=== PATIENT | female | born 1980 | race African-American/Black ===

== ENCOUNTER 2018-04-09 19:49 | Emergency (ER) | payer SELFPAY ==
[~2018-04-09] VITALS: Ht 170.2 cm; Wt 68.2 kg
[~2018-04-09 19:49] MED LIST: ANTIVERT 25MG25 MG PO; CLARITIN 1010 MG/TAB PO; MOTRIN 800800 MG/TAB PO; No Medications; PHENERGAN 25 TA25 MG PO; REGLAN 10MG10 MG/TAB PO
[2018-04-09 19:56] VITALS: BP 179/94; TEMP 99.2
[2018-04-09] MEDS ORDERED: NORCO 325 MG-51 TAB PO (20:13)
[2018-04-09] MEDS ORDERED: AMOXICILLIN 50500 MG PO (20:13)
[2018-04-09 20:44] VITALS: PULSE 90
== END 2018-04-09 20:47 | disposition home or self-care (01) ==
LOC: COL.ER 19:49
DX: K04.7 Periapical abscess without sinus (principal); F17.210 Nicotine dependence, cigarettes, uncomplicated

== ENCOUNTER 2019-08-19 16:07 | Emergency (ER) | payer SELFPAY ==
[~2019-08-19] VITALS: Ht 170.2 cm; Wt 68.2 kg
[~2019-08-19 16:07] MED LIST changes: +AMOXICILLIN 50500 MG PO; +NORCO 325 MG-51 TAB PO
[2019-08-19 16:14] VITALS: BP 136/75; TEMP 97.6
[2019-08-19 17:20] VITALS: PULSE 107
[2019-08-19 17:29] LABS: BASO % 0.4 % (0.0-2.0); EOS % 0.2 % (0-4.0); GRAN # 6.8 (1.4-6.5); GRAN % 65.6 % (42.2-75.2); LYMPH # 3.1 (1.2-3.4); LYMPH % 29.5 % (20.0-51.0); MEAN CELL VOLUME 72 fl (80.0-100.0); MEAN CORPUSCULAR HGB CONC 27 g/dl (33.0-37.0); MEAN PLATELET VOLUME 10.5 fl (7.4-10.4); MONO # 0.4 (0.1-0.6); PLATELET COUNT 323 K/mm3 (130-400); RED BLOOD COUNT 3.76 M/mm3 (4.10-5.30); REDCELL DISTRIBUTION WIDTH-CV 21.8 % (11.5-14.5)
[2019-08-19 17:38] LABS: HEMATOCRIT 26.9 % (37.0-47.0); HEMOGLOBIN 7.3 g/dl (12.5-16.0); MEAN CORPUSCULAR HEMOGLOBIN 19 pg (27.0-31.0)
[2019-08-19] MEDS ORDERED: FERROUS SU325 MG/TAB PO (17:42)
[2019-08-19 17:43] LABS: ALANINE AMINOTRANSFERASE < 6 U/L (9-52); ALBUMIN 3.8 gm/dL (3.5-5.0); ALKALINE PHOSPHATASE 59 U/L (50-136); ANION GAP 10 mmol/L (7-16); AST,SGOT 35 U/L (15-37); BILIRUBIN,TOTAL 0.4 mg/dL (0.0-1.0); BLOOD UREA NITROGEN 12 mg/dL (7-17); CALCIUM 9.6 mg/dL (8.4-10.2); CARBON DIOXIDE 25 mmol/L (22-30); CHLORIDE 98 mmol/L (98-107); CREATININE, serum 0.96 (0.52-1.25); GLUCOSE 126 mg/dL (74-106); POTASSIUM 3.2 mmol/L (3.4-5.0); SODIUM 133 mmol/L (137-145); TOTAL PROTEIN 9.5 gm/dL (6.4-8.2)
== END 2019-08-19 17:20 | disposition home or self-care (01) ==
LOC: COL.ER 16:07
PROVIDERS: Emergency Medicine
DX: R11.2 Nausea with vomiting, unspecified (principal); D64.9 Anemia, unspecified

== ENCOUNTER 2019-11-26 13:19 | Emergency (ER) | payer SELFPAY ==
[~2019-11-26] VITALS: Ht 170.2 cm; Wt 66.8 kg
[~2019-11-26 13:19] MED LIST changes: +FERROUS SU325 MG/TAB PO
[2019-11-26 13:40] VITALS: TEMP 98
[2019-11-26 14:00] VITALS: BP 182/110; PULSE 82
[2019-11-26] MEDS ORDERED: ZESTORETIC 12.51 TAB PO (14:11)
== END 2019-11-26 14:20 | disposition home or self-care (01) ==
LOC: COL.ER 13:19
DX: I10 Essential (primary) hypertension (principal); D64.9 Anemia, unspecified; F17.210 Nicotine dependence, cigarettes, uncomplicated

== ENCOUNTER 2020-05-21 08:33 | Emergency (ER) | payer SELFPAY ==
[~2020-05-21] VITALS: Ht 170.2 cm; Wt 68.2 kg
[~2020-05-21 08:33] MED LIST changes: +ZESTORETIC 12.51 TAB PO
[2020-05-21 08:50] VITALS: BP 137/84; TEMP 98.2
[2020-05-21 10:42] VITALS: PULSE 80
== END 2020-05-21 10:42 | disposition home or self-care (01) ==
LOC: COL.ER 08:33
DX: K52.9 Noninfective gastroenteritis and colitis, unspecified (principal); I10 Essential (primary) hypertension; F17.210 Nicotine dependence, cigarettes, uncomplicated

== ENCOUNTER 2020-06-27 18:24 | Emergency (ER) | payer SELFPAY ==
[~2020-06-27] VITALS: Ht 170.2 cm; Wt 75.9 kg
[2020-06-27 19:41] LABS: BASO % 0.3 % (0.0-2.0); EOS # 0.1 (0.0-0.7); EOS % 0.6 % (0-4.0); GRAN # 10.6 (1.4-6.5); GRAN % 75.2 % (42.2-75.2); LYMPH # 2.4 (1.2-3.4); LYMPH % 17.1 % (20.0-51.0); MEAN CELL VOLUME 75 fl (80.0-100.0); MEAN CORPUSCULAR HGB CONC 30 g/dl (33.0-37.0); MONO # 0.9 (0.1-0.6); MONO % 6.3 % (1.7-9.3); PLATELET COUNT 296 K/mm3 (130-400); RED BLOOD COUNT 3.75 M/mm3 (4.10-5.30); REDCELL DISTRIBUTION WIDTH-CV 19.2 % (11.5-14.5)
[2020-06-27 19:44] LABS: HEMOGLOBIN 8.3 g/dl (12.5-16.0); MEAN CORPUSCULAR HEMOGLOBIN 22 pg (27.0-31.0)
[2020-06-27 19:50] LABS: ALBUMIN 3.4 gm/dL (3.5-5.0); BILIRUBIN,TOTAL 0.3 mg/dL (0.0-1.0); CALCIUM 8.3 mg/dL (8.4-10.2); CREATININE, serum 0.64 (0.52-1.25); POTASSIUM 3.8 mmol/L (3.4-5.0)
[2020-06-27] MEDS ORDERED: NORCO 325 MG-51 TAB PO (21:43)
[2020-06-27] MEDS ORDERED: CLEOCIN HCL300 MG PO (21:43)
[2020-06-27] MEDS ORDERED: COZAAR 25MG25 MG/TAB PO ×2 (22:08)
[2020-06-27] MEDS ORDERED: PRINZIDE 12.5 M1 TAB PO (22:12)
[2020-06-27 22:32] VITALS: BP 174/74; PULSE 80; TEMP 98.9
== END 2020-06-27 22:48 | disposition home or self-care (01) ==
LOC: COL.ER 18:24
PROVIDERS: Emergency Medicine
DX: K02.9 Dental caries, unspecified (principal); K04.7 Periapical abscess without sinus; I10 Essential (primary) hypertension; F17.210 Nicotine dependence, cigarettes, uncomplicated
CPT/HCPCS: J2270; Q9967

== ENCOUNTER 2021-06-01 10:54 | Emergency (ER) | payer SELFPAY ==
[~2021-06-01] VITALS: Ht 170.2 cm; Wt 64.1 kg
[~2021-06-01 10:54] MED LIST changes: +CLEOCIN HCL300 MG PO; +COZAAR 25MG25 MG/TAB PO; +PRINZIDE 12.5 M1 TAB PO
[2021-06-01 11:03] VITALS: TEMP 98.2
[2021-06-01 11:35] LABS: BASO % 0.5 % (0.0-2.0); EOS % 0.2 % (0-4.0); GRAN # 6.6 (1.4-6.5); GRAN % 73.8 % (42.2-75.2); LYMPH # 1.6 (1.2-3.4); LYMPH % 18.2 % (20.0-51.0); MEAN CELL VOLUME 67 fl (80.0-100.0); MEAN CORPUSCULAR HGB CONC 27 g/dl (33.0-37.0); MEAN PLATELET VOLUME 9.2 fl (7.4-10.4); MONO # 0.6 (0.1-0.6); MONO % 6.8 % (1.7-9.3); PLATELET COUNT 285 K/mm3 (130-400); RED BLOOD COUNT 4.22 M/mm3 (4.10-5.30); REDCELL DISTRIBUTION WIDTH-CV 20.5 % (11.5-14.5)
[2021-06-01 11:36] LABS: HEMATOCRIT 28.3 % (37.0-47.0); HEMOGLOBIN 7.6 g/dl (12.5-16.0); MEAN CORPUSCULAR HEMOGLOBIN 18 pg (27.0-31.0)
[2021-06-01 12:26] LABS: ALBUMIN 2.7 gm/dL (3.5-5.0); BILIRUBIN,TOTAL 0.5 mg/dL (0.2-1.2); CREATININE, serum 0.74 mg/dL (0.57-1.11); POTASSIUM 3.1 mmol/L (3.5-4.5); TOTAL PROTEIN 8.5 gm/dL (6.2-8.1)
[2021-06-01] MEDS ORDERED: MYCELEX10 MG/TAB MM (15:58)
[2021-06-01 17:14] VITALS: BP 173/99; PULSE 70
== END 2021-06-01 17:16 | disposition home or self-care (01) ==
LOC: COL.ER 10:54
PROVIDERS: Physician Assistant
DX: K20.90 Esophagitis, unspecified without bleeding (principal); I10 Essential (primary) hypertension; F17.210 Nicotine dependence, cigarettes, uncomplicated; Z79.899 Other long term (current) drug therapy
CPT/HCPCS: J2405; J2704; J7030